=== PATIENT | male | born 1955 | race African-American/Black ===

== ENCOUNTER 2017-12-19 13:18 | Emergency (ER) | payer OTHER ==
[2017-12-19] MEDS ORDERED: ISOVUE-370 76%-LOCM 1 ML ONE (13:29)
[2017-12-19 14:12] LABS: Hemoglobin 11.7 g/dL (14.0-18.0); Mean Corpuscular HGB CONC 30.5 g/dL (32.0-36.0); Mean Corpuscular Hemoglobin 24.5 pg (27.0-31.0); Mean Corpuscular Volume 80.4 fl (80.0-94.0); Mean Platelet Volume 6.7 fL (7.4-10.4); Platelet Count 150 thou/uL (130-400); RBC Distribution Width 19.4 % (11.5-14.5); Red Blood Cell (RBC) Count 4.76 mill/uL (4.70-6.10)
[2017-12-19 14:17] LABS: PTT 39.3 SEC (22.9-36.1); Prothrombin Time 23.2 SEC (12.0-14.7)
[2017-12-19] MEDS ORDERED: Promethazine HCl 25 MG/ML VIAL ONE ×2 (14:21→19:39)
[2017-12-19 14:28] LABS: #Basophils 0.1 thou/uL (0.0-0.2); #Eosinphils 0.1 thou/uL (0.0-0.7); #Lymphocytes 1.4 thou/uL (1.20-3.40); #Monocytes 0.8 thou/uL (0.11-0.59); #Neutrophils 6.6 thou/uL (1.40-6.50); %Basophils 0.6 % (0.0-1.0); %Eosinophils 1.3 % (0.0-10.0); %Monocytes 8.9 % (0.0-10.0); %Neutrophils 73.2 % (42.0-75.0); Anisocytosis SLIGHT = 6-15 cells (100X) (0-5/hpf); MDiff Complete? YES; PLT Morphology Comment Appears Adequate
[2017-12-19 14:33] LABS: ALT (SGPT) 15 U/L (8-55); AST (SGOT) 39 U/L (5-34); Albumin 4.1 g/dL (3.4-4.8); Alkaline Phosphatase 227 U/L (40-150); Anion Gap 15 mmol/L (10-20); BUN (Urea Nitrogen) 36 mg/dL (8.4-25.7); Bilirubin, Total 0.5 mg/dL (0.2-1.2); CK (CPK) 305 U/L (30-200); Calc. Creatinine Clearance 0 mL/min (70-130); Calcium 9.5 mg/dL (7.8-10.44); Carbon Dioxide 20 mmol/L (23-31); Chloride 106 mmol/L (98-107); Estimated GFR-MDRD 36; Globulin 3.7 g/dL (2.4-3.5); Glucose 91 mg/dL (80-115); Lipase 28 U/L (8-78); Potassium 4.1 mmol/L (3.5-5.1); Protein, Total 7.8 g/dL (5.8-8.1); Sodium 137 mmol/L (136-145)
[2017-12-19 14:36] LABS: CKMB 3.8 ng/mL (0-6.6)
--- NOTE | 2017-12-19 16:11 | RAD ---
CHEST ONE VIEW: History: Chest pain. Comparison: None. FINDINGS: There are sternotomy wires. There is a left sided transvenous defibrillator with multiple leads. Hear t is enlarged. Patchy opacities in the right and left lung base. No pneumothorax. IMPRESSION: No acute cardiopulmonary process. POS: [facility]
--- NOTE | 2017-12-19 16:12 | CT ---
CT ANGIOGRAM OF THE THORACIC AND ABDOMINAL AORTA 12/19/17 HISTORY: Chest pain. Evaluate for dissection. Substernal chest pain radiating to the back. Shortness of breath and nausea. COMPARISON: None. TECHNIQUE: CT angiogram of the thoracic and abdominal aorta are performed in the axial plane. Sagittal and coron al three dimensional reformatted images are submitted for interpretation. FINDINGS: CHEST CT: There is a catheter projecting over the mediastinum with the distal aspect in the anterior right uppe r quadrant. The catheter is predominantly filled with air and has a metallic density at its distal as pect. Heart is enlarged. No significant pericardial fluid. Trachea and central bronchi are patent. There are linear opacities with consolidation in the right lo wer lobe due to atelectasis or pneumonia. Additional linear opacities in the middle lobe and left low er lobe are noted. No significant pleural fluid. No pneumothorax. ABDOMEN CT: There is appropriate enhancement of the solid organs. No evidence of obstructive uropathy. No mesente gabe mass, lymphadenopathy, free air or free fluid. Visualized alimentary canal is unremarkable. Normal caliber retrocecal appendix. CT ANGIOGRAM: There is appropriate enhancement and luminal diameter of the ascending thoracic aorta, aortic arch, d escending thoracic aorta, abdominal aorta and aortic bifurcation. Small amounts of atherosclerosis ar e noted. There is appropriate enhancement and luminal diameter of the celiac artery origin, superior mesenteric artery origin, left and right renal arteries as well as the inferior mesenteric artery. Th ere is a small amount of calcified plaque in the right renal artery ostium. The visualized carotid ar teries are unremarkable. There are degenerative changes of the spine. 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 IMPRESSION: 1. No evidence of aneurysm or dissection. 2. Lung parenchymal changes as above. Areas of atelectasis are favored. Pneumonia cannot be comp letely excluded. 3. Catheter projecting over the anterior mediastinum of uncertain etiology or significance. Results of the study discussed with Dr. Zapata, 12/19/17 at 3:38 p.m. Code CR POS: [facility]
[2017-12-19 17:46] LABS: Troponin I 0.065 ng/mL (< 0.028)
== END 2017-12-19 21:47 | disposition short-term general hospital (02) ==
LOC: ERS 13:18
DX: R07.2 Precordial pain (principal); I11.0 Hypertensive heart disease with heart failure; I50.9 Heart failure, unspecified; E03.9 Hypothyroidism, unspecified; J44.9 Chronic obstructive pulmonary disease, unspecified; I25.2 Old myocardial infarction; F41.9 Anxiety disorder, unspecified; Z79.01 Long term (current) use of anticoagulants; Z79.82 Long term (current) use of aspirin; Z79.899 Other long term (current) drug therapy
CPT/HCPCS: 36415; 71045; 71275; 80053; 80162; 82553; 83690; 84484; 85025; 85610; 85730; 93005; 94760; 96374; 96375; 96376; J2270; J2550